=== PATIENT | female | born 1945 | race Asian ===

== ENCOUNTER 2024-02-04 09:18 | Day surgery (SDC) | payer OTHER ==
[2024-01-30 14:03] VITALS: BMI 26.4
[2024-02-04] MEDS ORDERED: CYCLOPENTOLATE 2% OPHTH SOLN 2 ML BOTTLE ONE (09:21)
[2024-02-04] MEDS ORDERED: TROPICAMIDE 1% OPHTH SOLN 15 ML BOTTLE ONE (09:21)
[2024-02-04] MEDS ORDERED: PHENYLEPHRINE 2.5% OPTHALMIC DROP 2ML BOTTLE ONE (09:21)
[2024-02-04] MEDS ORDERED: CIPROFLOXACIN 0.3% EYE DROPS 5 ML BOTTLE ONE (09:21)
[2024-02-04] MEDS ORDERED: MIDAZOLAM HCL 2 MG/2 ML SINGLE DOSE VIAL ONE (09:27)
[2024-02-04] MEDS: CYCLOPENTOLATE 2% OPHTH SOLN 2 ML BOTTLE OS ONE ×3 (09:50→10:00)
[2024-02-04] MEDS: TROPICAMIDE 0.5% OPHTHALMIC SOLN 15 ML BOTTLE OS ONE ×3 (09:50→10:00)
[2024-02-04] MEDS: CIPROFLOXACIN 0.3% EYE DROPS 5 ML BOTTLE OS ONE ×3 (09:50→10:00)
[2024-02-04] MEDS: PHENYLEPHRINE 2.5% OPHTH SOLN 15 ML BOTTLE OS ONE ×3 (09:50→10:00)
[2024-02-04] MEDS ORDERED: LIDOCAINE 1% P/F 10 MG/ML VIAL ONE (09:52)
[2024-02-04] MEDS ORDERED: TETRACAINE 0.5% OPHTH SOLN 2 ML BOTTLE ONE (09:52)
[2024-02-04] MEDS ORDERED: EPINEPHrine/PF 1 MG/1 ML (1:1,000) AMPULE ONE (09:52)
[2024-02-04] MEDS ORDERED: CARBACHOL 0.01% INTRA-OCULAR 1.5 ML VIAL ONE (09:52)
[2024-02-04] MEDS ORDERED: BSS (NA/CA/MG/K) BALANCED SALT SOLUTION OPHTH SOLN 15 ML BOTTLE ONE (09:52)
[2024-02-04] MEDS ORDERED: NEO/POLYMYX B SULF/DEXAMETH OPHTHALMIC 5ML BOTTLE ONE (09:52)
[2024-02-04 11:40] VITALS: RESP 18; TEMP 97.7
[2024-02-04 11:57] VITALS: BP 148/68; PULSE 79
== END 2024-02-04 11:50 | disposition home or self-care (01) ==
LOC: FASU 09:18
PROVIDERS: ATTEND Ophthalmology
PROC: 08RK3JZ Replacement of Left Lens with Synthetic Substitute, Percutaneous Approach (ICD-10-PCS; principal; 2024-02-04 10:59)
DX: H26.8 Other specified cataract (principal)
CPT/HCPCS: 66984; V2632